=== PATIENT | female | born 1990 | race Caucasian/White ===

== ENCOUNTER 2017-12-16 07:30 | Outpatient (RCR) | payer OTHER, SELFPAY ==
--- NOTE | 2017-10-27 11:10 | PT.OTN ---
Addendum entered and electronically signed by Asiya Floyd, PT 10/27/17 14:20: Transition note: On October 27, 2017 our therapy services consisting of Speech, Occupational, and Physical Therapy transitioned from the [employer] electronic documentation system to a new [employer] electronic documentation system.?? All documentation prior to October 27 can be found under [employer] saved data. From October 27 forward all medical record documentation will be in [email or web address]. Original Note: Physical Therapy Treatment Note PT-OP-A Visit Information Start: 10/27/17 08:14 Freq: Status: Active Protocol: Activity Type Activity Date Activity User E-Sign Co-Sign Detail Recorded Client Recorded Date Recorded By Document 10/27/17 08:16 AMB [email or web address] 10/27/17 08:33 AMB 10/27/17 08:16 Out-Patient Physical Therapy Visit Information [Visit Information] -Visit Type Treatment Note -Visit Start Time 07:40 -Visit Stop Time 08:15 -Total Visit Minutes 35 -Visit Number 2 PT-OP-C Subjective Start: 10/27/17 08:14 Freq: Status: Active Protocol: Activity Type Activity Date Activity User E-Sign Co-Sign Detail Recorded Client Recorded Date Recorded By Document 10/27/17 08:16 AMB [email or web address] 10/27/17 08:33 AMB 10/27/17 08:16 OP-PT Subjective [Patient Comments] -Patient Comments Patient states she had to drive up to the [facility] and the long drive increased her hip pain. When the pain is bad it radiates into the front of the hip and down the medial thigh. PT-OP-Q Treatments Start: 10/27/17 08:14 Freq: Status: Active Protocol: Activity Type Activity Date Activity User E-Sign Co-Sign Detail Recorded Client Recorded Date Recorded By Document 10/27/17 08:16 AMB [email or web address] 10/27/17 08:33 AMB 10/27/17 08:16 Cardio Equipment [Recumbent Bicycle] -Duration (Minutes) 5 -Resistance L4 Gym Equipment [Shuttle Recovery] Double leg squat -Resistance 62 -Shuttle Recovery Platform Stable -Reps/Time 5 min Therapeutic Exercises [Supine Exercises] Hooklying hip ER with theraband -Resistance #3 -Reps/Minutes 2x10 Hip flexor stretch -Side left -Reps/Minutes 30sec x4 Hip flexion SLR -Side left -Reps/Minutes 2x10 Piriformis stretch -Side left -Reps/Minutes 30 sec x4 Bridge -Side bilateral -Reps/Minutes 4 [Prone Exercises] Quadruped hip extension -Side bilateral -Reps/Minutes 4 minutes [Sidelying Exercises] clamshell -Side bilateral -Reps/Minutes 4 minutes PT-OP-T Assessment and Plan Start: 10/27/17 08:14 Freq: Status: Active Protocol: Activity Type Activity Date Activity User E-Sign Co-Sign Detail Recorded Client Recorded Date Recorded By Document 10/27/17 08:16 AMB [email or web address] 10/27/17 08:33 AMB 10/27/17 08:16 Physical Therapy Assessment [Assessment Summary] -Assessment The patient presents with knee valgus positioning and poor endurance in hip abduction and external rotation. We will start slow due to her previous history of knee pain, and follow up on HEP tolerance of SLR and clam exercises. Physical Therapy Plan [Next Visit Focus/Plan] -Next Visit Plan Progress stabilization exercises.
--- NOTE | 2017-11-03 08:26 | PT.OTN ---
Physical Therapy Treatment Note PT-OP-A Visit Information Start: 10/27/17 08:14 Freq: Status: Active Protocol: Activity Type Activity Date Activity User E-Sign Co-Sign Detail Recorded Client Recorded Date Recorded By Document 11/03/17 07:30 AMB [id number] 11/03/17 07:38 AMB 11/03/17 07:30 Out-Patient Physical Therapy Visit Information [Visit Information] -Visit Type Treatment Note -Visit Note POC expires -Visit Start Time 07:30 -Visit Stop Time 08:15 -Total Visit Minutes 45 -Visit Number 3 [Evaluation Information] -Evaluation Date 12/20/17 PT-OP-C Subjective Start: 10/27/17 08:14 Freq: Status: Active Protocol: Activity Type Activity Date Activity User E-Sign Co-Sign Detail Recorded Client Recorded Date Recorded By Document 11/03/17 07:30 AMB [id number] 11/03/17 07:56 AMB 11/03/17 07:30 OP-PT Subjective [Patient Comments] -Patient Comments Pt tried her friend's tilt table which helped for a little bit. Did some yardwork over the weekend which she was careful with but went ok. -Patient Reported Progress Improving OP-PT Pain Assessment [Location] Left Hip -Intensity 3 -Scale Used Numeric (1 - 10 ) PT-OP-Q Treatments Start: 10/27/17 08:14 Freq: Status: Active Protocol: Activity Type Activity Date Activity User E-Sign Co-Sign Detail Recorded Client Recorded Date Recorded By Document 11/03/17 07:30 AMB [id number] 11/03/17 08:17 AMB 11/03/17 07:30 Cardio Equipment [Recumbent Bicycle] -Duration (Minutes) 5 -Resistance L4 Gym Equipment [Shuttle Recovery] Double leg squat -Resistance 62 -Shuttle Recovery Platform Stable -Reps/Time 5 min [Therapeutic Ball] 2 -Exercise Details trunk rotation -Ball Size/Color red ball -Body Position Supine -Reps/Duration 2x15 1 -Exercise Details bridges -Ball Size/Color red ball -Body Position Supine -Reps/Duration 2x12 Therapeutic Exercises [Supine Exercises] 1 -Supine Exercise Name piriformis stretch -Reps/Minutes 2x 30 sec Hip flexion SLR -Side left -Reps/Minutes 2x10 Bridge -Side bilateral -Reps/Minutes 4 [Sidelying Exercises] 1 -Sidelying Exercise Name hip abduction -Reps/Minutes 2x 8 clamshell -Side bilateral -Reps/Minutes 4 minutes Manual Therapy Treatment [Soft Tissue Mobilization] L hip -Body Location L piriformis, QL -Mobilization Type Strumming Sustained Pressure -Intensity/Depth Moderate -Body Position Sidelying [Manual Traction] L LE -Details long axis distraction -Reps/Duration 5 min PT-OP-T Assessment and Plan Start: 10/27/17 08:14 Freq: Status: Active Protocol: Activity Type Activity Date Activity User E-Sign Co-Sign Detail Recorded Client Recorded Date Recorded By Document 11/03/17 07:30 AMB [id number] 11/03/17 08:26 AMB 11/03/17 07:30 Physical Therapy Assessment [Goals] 2 -Impairment Exercise tolerance -Short Term Goal (STG) The patient will be independwent with a stabilization HEP -STG Duration 8 weeks -Superintendent [employer] Goal (LTG) The patient will return to her workout at the gym for 1 hour with pain of 3/10 or less . -LTG Duration 10 weeks 1 -Impairment Positional tolerance -Short Term Goal (STG) The patient will sit at her office for 45 minutes with 3/ 10 pain or less . -STG Duration 8 weeks -Alf Goal (LTG) The patient will stand with good body mechanics for 30 minutes with 3/10 pain or less. -LTG Duration 10 weeks [Assessment Summary] -Assessment The patient had less severe pain today. She tolerated more advanced exercises, but tends to overuse her lumbar musculature rather than her hips. Physical Therapy Plan [Next Visit Focus/Plan] -Next Visit Plan Progress body mechanics training.
--- NOTE | 2017-11-10 09:17 | PT.OTN ---
Physical Therapy Treatment Note PT-OP-A Visit Information Start: 10/27/17 08:14 Freq: Status: Active Protocol: Document 11/10/17 07:30 AMB (Rec: 11/10/17 07:30 AMB [id number]) Out-Patient Physical Therapy Visit Information Visit Information Visit Type Treatment Note Visit Note POC expires 01/05 Visit Start Time 07:30 Visit Stop Time 08:15 Total Visit Minutes 45 Visit Number 4 Evaluation Information Evaluation Date 12/20/17 PT-OP-C Subjective Start: 10/27/17 08:14 Freq: Status: Active Protocol: Document 11/10/17 07:30 AMB (Rec: 11/10/17 07:35 AMB [id number]) OP-PT Subjective Patient Comments Patient Comments Sitting for 2 hours over the weekend increased pain. She has been doing her PT exercises. PT-OP-Q Treatments Start: 10/27/17 08:14 Freq: Status: Active Protocol: Document 11/10/17 07:30 AMB (Rec: 11/10/17 08:07 AMB [id number]) Cardio Equipment Recumbent Bicycle Duration (Minutes) 5 Resistance L5 Gym Equipment Shuttle Balance 1 Details BLUE Reps/Duration 2x10 Comments squats Therapeutic Ball 3 Exercise Details seated on green ball Ball Size/Color seated march and pelvic circles Reps/Duration x 20 ea Therapeutic Exercises Supine Exercises 2 Supine Exercise Name 90-90 tap downs Reps/Minutes 2 x 8 Prone Exercises 2 Prone Exercise Name modifed plank Comments forearms Quadruped hip extension Side bilateral Reps/Minutes 4 minutes Sidelying Exercises 1 Sidelying Exercise Name hip abduction Reps/Minutes 2x 10 clamshell Side bilateral Reps/Minutes 4 minutes Manual Therapy Treatment Soft Tissue Mobilization L hip Body Location L piriformis, QL Mobilization Type Strumming Sustained Pressure Intensity/Depth Moderate Body Position Sidelying PT-OP-T Assessment and Plan Start: 10/27/17 08:14 Freq: Status: Active Protocol: Document 11/10/17 07:30 AMB (Rec: 11/10/17 09:16 AMB [id number]) Physical Therapy Assessment Assessment Summary Assessment More low back than hip pain today. Tight QL on the L. Physical Therapy Plan Next Visit Focus/Plan Next Visit Plan Progress core stabilization, seated and sleeping postures
--- NOTE | 2017-11-17 09:17 | PT.OTN ---
Physical Therapy Treatment Note PT-OP-A Visit Information Start: 10/27/17 08:14 Freq: Status: Active Protocol: Document 11/17/17 07:30 AMB (Rec: 11/17/17 07:42 AMB [id number]) Out-Patient Physical Therapy Visit Information Visit Information Visit Type Treatment Note Visit Note POC expires 01/05 Visit Start Time 07:30 Visit Stop Time 08:15 Total Visit Minutes 45 Visit Number 5 Evaluation Information Evaluation Date 12/20/17 PT-OP-C Subjective Start: 10/27/17 08:14 Freq: Status: Active Protocol: Document 11/17/17 07:30 AMB (Rec: 11/17/17 07:43 AMB [id number]) OP-PT Subjective Patient Comments Patient Comments Pt reports increased posterior low back (L) pain after driving extensively yesterday. PT-OP-Q Treatments Start: 10/27/17 08:14 Freq: Status: Active Protocol: Document 11/17/17 07:30 AMB (Rec: 11/17/17 09:16 AMB [email or web address]) Gym Equipment Shuttle Recovery Double leg squat Resistance 62 Shuttle Recovery Platform Stable Reps/Time 5 min Therapeutic Ball 3 Exercise Details seated on green ball Ball Size/Color seated march and pelvic circles Reps/Duration x 20 ea Therapeutic Exercises Supine Exercises 3 Supine Exercise Name 90-90 isometric hold Reps/Minutes 5 seconds x 5 Bridge Side bilateral Reps/Minutes 4 Prone Exercises Quadruped hip extension Side bilateral Reps/Minutes 4 minutes Sidelying Exercises 1 Sidelying Exercise Name hip abduction Reps/Minutes 2x 10 Manual Therapy Treatment Soft Tissue Mobilization L hip Body Location L piriformis, QL Mobilization Type Strumming Sustained Pressure Intensity/Depth Moderate Body Position Sidelying Manual Traction L LE Details long axis distraction Reps/Duration 5 min PT-OP-R Modalities Start: 11/17/17 08:14 Freq: Status: Active Protocol: Document 11/17/17 07:30 AMB (Rec: 11/17/17 08:15 AMB [id number]) Electric Stimulation Electric Stimulation Interferential Current (IFC) Body Location L low back Duration (Minutes) 15 Target/Sweep Sweep Patient Position Hooklying PT-OP-T Assessment and Plan Start: 10/27/17 08:14 Freq: Status: Active Protocol: Document 11/17/17 07:30 AMB (Rec: 11/17/17 09:16 AMB [email or web address]) Physical Therapy Assessment Goals 2 Impairment Exercise tolerance Short Term Goal (STG) The patient will be independwent with a stabilization HEP STG Duration 8 weeks Roll On Man Goal (LTG) The patient will return to her workout at the gym for 1 hour with pain of 3/10 or less. LTG Duration 10 weeks 1 Impairment Positional tolerance Short Term Goal (STG) The patient will sit at her office for 45 minutes with 3/ 10 pain or less. STG Duration 8 weeks Roll On Man Goal (LTG) The patient will stand with good body mechanics for 30 minutes with 3/10 pain or less . LTG Duration 10 weeks Assessment Summary Assessment Pt with flare up of sx due to increased driving time. 8 early in morning, 6/10 after leaving PT in left low back. Physical Therapy Plan Next Visit Focus/Plan Next Visit Plan Encourage pt in self care when she has a pain flare up. Please Sign and Return: I have reviewed this Plan of Care and certify that the skilled therapy services above are required to meet the patient???s needs. Physician Signature Date Printed Name and Credentials Clinical Instructor Signature Printed Name and Credentials
--- NOTE | 2017-11-26 12:56 | PT.OTN ---
Physical Therapy Treatment Note PT-OP-A Visit Information Start: 10/27/17 08:14 Freq: Status: Active Protocol: Document 11/26/17 07:30 AMB (Rec: 11/26/17 07:30 AMB [id number]) Out-Patient Physical Therapy Visit Information Visit Information Visit Type Treatment Note Visit Note POC expires 01/05 Visit Start Time 07:30 Visit Stop Time 08:15 Total Visit Minutes 45 Visit Number 6 Evaluation Information Evaluation Date 12/20/17 PT-OP-C Subjective Start: 10/27/17 08:14 Freq: Status: Active Protocol: Document 11/26/17 07:30 AMB (Rec: 11/26/17 12:55 AMB [email or web address]) OP-PT Subjective Patient Comments Patient Comments The patient states she is doing ok today, she was not doing as well earlier in the week, sitting for 7 hours for work really irritated her left low back. She does feel that overall she is improving with PT. PT-OP-Q Treatments Start: 10/27/17 08:14 Freq: Status: Active Protocol: Document 11/26/17 07:30 AMB (Rec: 11/26/17 12:55 AMB [email or web address]) Cardio Equipment Recumbent Bicycle Duration (Minutes) 5 Resistance L5 Therapeutic Exercises Supine Exercises 3 Supine Exercise Name 90-90 isometric hold Reps/Minutes 5 seconds x 5 2 Supine Exercise Name 90-90 tap downs Reps/Minutes 2 x 8 Bridge Side bilateral Reps/Minutes 4 Prone Exercises Quadruped hip extension Side bilateral Reps/Minutes 4 minutes Sidelying Exercises 1 Sidelying Exercise Name hip abduction Reps/Minutes 2x 10 clamshell Side bilateral Reps/Minutes 4 minutes Therapeutic Activity Therapeutic Activity 1 Name Lifting 10# Comments squatting from knee to waist height PT-OP-R Modalities Start: 11/17/17 08:14 Freq: Status: Active Protocol: Document 11/17/17 07:30 AMB (Rec: 11/17/17 08:15 AMB [id number]) Electric Stimulation Electric Stimulation Interferential Current (IFC) Body Location L low back Duration (Minutes) 15 Target/Sweep Sweep Patient Position Hooklying PT-OP-T Assessment and Plan Start: 10/27/17 08:14 Freq: Status: Active Protocol: Document 11/26/17 07:30 AMB (Rec: 11/26/17 12:55 AMB [email or web address]) Physical Therapy Assessment Assessment Summary Assessment Pt reports she has been back to the gym doing light weights and that has been going well. Sitting continues to be the biggest challenge. Physical Therapy Plan Next Visit Focus/Plan Next Note Type Treatment Note Next Visit Plan Problem solve sitting/ lifting mechanics. Please Sign and Return: I have reviewed this Plan of Care and certify that the skilled therapy services above are required to meet the patient???s needs. Physician Signature Date Printed Name and Credentials Clinical Instructor Signature Printed Name and Credentials
--- NOTE | 2017-12-03 06:27 | PT.OTN ---
Physical Therapy Treatment Note PT-OP-A Visit Information Start: 10/27/17 08:14 Freq: Status: Active Protocol: Document 12/02/17 07:30 AMB (Rec: 12/02/17 07:42 AMB [id number]) Out-Patient Physical Therapy Visit Information Visit Information Visit Type Treatment Note Visit Note POC expires 01/05 Visit Start Time 07:30 Visit Stop Time 08:15 Total Visit Minutes 45 Visit Number 7 Evaluation Information Evaluation Date 12/20/17 PT-OP-C Subjective Start: 10/27/17 08:14 Freq: Status: Active Protocol: Document 12/02/17 07:30 AMB (Rec: 12/02/17 08:11 AMB [id number]) OP-PT Subjective Patient Comments Patient Comments Patient states later this week , she will be driving more which continues to be painful. PT-OP-Q Treatments Start: 10/27/17 08:14 Freq: Status: Active Protocol: Document 12/02/17 07:30 AMB (Rec: 12/03/17 06:26 AMB [email or web address]) Cardio Equipment Recumbent Bicycle Duration (Minutes) 5 Resistance L5 Gym Equipment Shuttle Recovery Double leg squat Resistance 62 Shuttle Recovery Platform Stable Reps/Time 5 min Therapeutic Ball 2 Exercise Details trunk rotation Ball Size/Color red ball Body Position Supine Reps/Duration 2x15 1 Exercise Details bridges Ball Size/Color red ball Body Position Supine Reps/Duration 2x12 Therapeutic Exercises Supine Exercises 2 Supine Exercise Name 90-90 tap downs Reps/Minutes 2 x 8 Prone Exercises Quadruped hip extension Side bilateral Reps/Minutes 4 minutes Self-Care/Home Management Treatment Education Patient Education Pain Management Other Education SI belt fitting, and role with seated pain PT-OP-R Modalities Start: 11/17/17 08:14 Freq: Status: Active Protocol: Document 11/17/17 07:30 AMB (Rec: 11/17/17 08:15 AMB [id number]) Electric Stimulation Electric Stimulation Interferential Current (IFC) Body Location L low back Duration (Minutes) 15 Target/Sweep Sweep Patient Position Hooklying PT-OP-T Assessment and Plan Start: 10/27/17 08:14 Freq: Status: Active Protocol: Document 12/02/17 07:30 AMB (Rec: 12/03/17 06:26 AMB [email or web address]) Physical Therapy Assessment Assessment Summary Assessment Pt felt better support with SI belt in SI joint, but compression over hips was somewat uncomfortable Physical Therapy Plan Next Visit Focus/Plan Next Note Type Treatment Note Next Visit Plan Follow up on SI belt, seated pain. Please Sign and Return: I have reviewed this Plan of Care and certify that the skilled therapy services above are required to meet the patient?s needs. Physician Signature Date Printed Name and Credentials Clinical Instructor Signature Printed Name and Credentials
--- NOTE | 2017-12-09 13:59 | PT.OTN ---
Physical Therapy Treatment Note PT-OP-A Visit Information Start: 10/27/17 08:14 Freq: Status: Active Protocol: Document 12/09/17 07:30 AMB (Rec: 12/09/17 07:33 AMB [id number]) Out-Patient Physical Therapy Visit Information Visit Information Visit Type Treatment Note Visit Note POC expires 01/05 Visit Start Time 07:30 Visit Stop Time 08:15 Total Visit Minutes 45 Visit Number 8 PT-OP-C Subjective Start: 10/27/17 08:14 Freq: Status: Active Protocol: Document 12/09/17 07:30 AMB (Rec: 12/09/17 07:38 AMB [id number]) OP-PT Subjective Patient Comments Patient Comments The patient reports last week was a lot of driving, so fairly painful. PT-OP-Q Treatments Start: 10/27/17 08:14 Freq: Status: Active Protocol: Document 12/09/17 07:30 AMB (Rec: 12/09/17 13:58 AMB [id number]) Therapeutic Exercises Prone Exercises 2 Prone Exercise Name modifed plank Comments forearms Quadruped hip extension Side bilateral Reps/Minutes 4 minutes Sidelying Exercises 1 Sidelying Exercise Name hip abduction Reps/Minutes 2x 10 clamshell Side bilateral Reps/Minutes 4 minutes Sitting Exercises 2 Sitting Exercise Name shoulder ER t band Resistance 3 Reps/Minutes 10 1 Sitting Exercise Name rows theraband Resistance 3 Comments 10 Manual Therapy Treatment Manual Traction L LE Details long axis distraction Reps/Duration 5 min PT-OP-R Modalities Start: 11/17/17 08:14 Freq: Status: Active Protocol: Document 11/17/17 07:30 AMB (Rec: 11/17/17 08:15 AMB [id number]) Electric Stimulation Electric Stimulation Interferential Current (IFC) Body Location L low back Duration (Minutes) 15 Target/Sweep Sweep Patient Position Hooklying PT-OP-T Assessment and Plan Start: 10/27/17 08:14 Freq: Status: Active Protocol: Document 12/09/17 07:30 AMB (Rec: 12/09/17 13:58 AMB [id number]) Physical Therapy Assessment Goals 2 Impairment Exercise tolerance Short Term Goal (STG) The patient will be independwent with a stabilization HEP STG Duration 8 weeks Mcfp Goal (LTG) The patient will return to her workout at the gym for 1 hour with pain of 3/10 or less. LTG Duration 10 weeks 1 Impairment Positional tolerance Short Term Goal (STG) The patient will sit at her office for 45 minutes with 3/ 10 pain or less. STG Duration 8 weeks Volunteer Fire Fighter Goal (LTG) The patient will stand with good body mechanics for 30 minutes with 3/10 pain or less . LTG Duration 10 weeks Assessment Summary Assessment Vended SI belt, possible d/c next visit as pt is feeling somewhat better. Physical Therapy Plan Next Visit Focus/Plan Next Note Type Discharge Summary Next Visit Plan Pt is possibly being discharged. Please Sign and Return: I have reviewed this Plan of Care and certify that the skilled therapy services above are required to meet the patient?s needs. Physician Signature Date Printed Name and Credentials Clinical Instructor Signature Printed Name and Credentials
--- NOTE | 2017-12-16 09:39 | PT.OTN ---
Physical Therapy Treatment Note PT-OP-A Visit Information Start: 10/27/17 08:14 Freq: Status: Active Protocol: Document 12/16/17 07:30 AMB (Rec: 12/16/17 07:43 AMB [id number]) Out-Patient Physical Therapy Visit Information Visit Information Visit Start Time 07:40 Visit Stop Time 08:15 Total Visit Minutes 35 Visit Number 9 Evaluation Information Evaluation Date 12/20/17 PT-OP-C Subjective Start: 10/27/17 08:14 Freq: Status: Active Protocol: Document 12/16/17 07:30 AMB (Rec: 12/16/17 07:43 AMB [id number]) OP-PT Subjective Patient Comments Patient Comments Pt reports a painful day yesterday driving down to [facility] and back. PT-OP-Q Treatments Start: 10/27/17 08:14 Freq: Status: Active Protocol: Document 12/16/17 07:30 AMB (Rec: 12/16/17 09:38 AMB [email or web address]) Cardio Equipment Recumbent Bicycle Duration (Minutes) 5 Resistance L5 Gym Equipment Therapeutic Ball 2 Exercise Details trunk rotation Ball Size/Color red ball Body Position Supine Reps/Duration 2x15 Manual Therapy Treatment Soft Tissue Mobilization L hip Body Location L piriformis, QL Mobilization Type Strumming Sustained Pressure Intensity/Depth Moderate Body Position Sidelying Manual Traction L LE Details long axis distraction Reps/Duration 5 min PT-OP-R Modalities Start: 11/17/17 08:14 Freq: Status: Active Protocol: Document 11/17/17 07:30 AMB (Rec: 11/17/17 08:15 AMB [id number]) Electric Stimulation Electric Stimulation Interferential Current (IFC) Body Location L low back Duration (Minutes) 15 Target/Sweep Sweep Patient Position Hooklying PT-OP-T Assessment and Plan Start: 10/27/17 08:14 Freq: Status: Active Protocol: Document 12/16/17 07:30 AMB (Rec: 12/16/17 09:38 AMB [email or web address]) Physical Therapy Assessment Goals 2 Impairment Exercise tolerance Short Term Goal (STG) The patient will be independwent with a stabilization HEP. MET STG Duration 8 weeks Conveyor Belt Operator Goal (LTG) The patient will return to her workout at the gym for 1 hour with pain of 3/10 or less. MET LTG Duration 10 weeks 1 Impairment Positional tolerance Short Term Goal (STG) The patient will sit at her office for 45 minutes with 3/ 10 pain or less. PARTIALLY MET- pt can sit at her desk for 1 hour, but it increases her pain STG Duration 8 weeks [employer] Goal (LTG) The patient will stand with good body mechanics for 30 minutes with 3/10 pain or less . MET LTG Duration 10 weeks Assessment Summary Assessment The patient reports pain at best is 2/10, after extended sitting/driving it can get up to a 7/10. She has been instructed in self care activities to help manage this pain, but it does continue. Physical Therapy Plan Discharge Physical Therapy Discharge Reasons Patient Request Discharge Comments Patient is feeling that she is ready to be independent with her HEP. Sitting remains the most painful activity for her.
--- NOTE | 2017-12-16 09:40 | PT.OPDS ---
Provider Visit Care Team Role Provider Type Jenny Banks MD Attending Provider Non-Staff Family Provider Primary Care Provider Specialty: Family Practice Address: [address] [place] [address], [place], [address] Email: Visit Number 9 Discharge Summary PT-OP-C Subjective Start: 10/27/17 08:14 Freq: Status: Active Protocol: Document 12/16/17 07:30 AMB (Rec: 12/16/17 07:43 AMB [id number]) OP-PT Subjective Patient Comments Patient Comments Pt reports a painful day yesterday driving down to [place] [facility] [place], [place] and back. PT-OP-T Assessment and Plan Start: 10/27/17 08:14 Freq: Status: Active Protocol: Document 12/16/17 07:30 AMB (Rec: 12/16/17 09:38 AMB [id number]) Physical Therapy Assessment Goals 2 Impairment Exercise tolerance Short Term Goal (STG) The patient will be independwent with a stabilization HEP. MET STG Duration 8 weeks Correction Goal (LTG) The patient will return to her workout at the gym for 1 hour with pain of 3/10 or less. MET LTG Duration 10 weeks 1 Impairment Positional tolerance Short Term Goal (STG) The patient will sit at her office for 45 minutes with 3/ 10 pain or less. PARTIALLY MET- pt can sit at her desk for 1 hour, but it increases her pain STG Duration 8 weeks Worship Pastor Goal (LTG) The patient will stand with good body mechanics for 30 minutes with 3/10 pain or less . MET LTG Duration 10 weeks Assessment Summary Assessment The patient reports pain at best is 2/10, after extended sitting/driving it can get up to a 7/10. She has been instructed in self care activities to help manage this pain, but it does continue. Physical Therapy Plan Discharge Physical Therapy Discharge Reasons Patient Request Discharge Comments Patient is feeling that she is ready to be independent with her HEP. Sitting remains the most painful activity for her.
== END 2018-04-08 09:37 ==
LOC: PHYS 07:30
PROVIDERS: Family Provider Family Medicine; PCP Family Medicine; Visit Provider Family Medicine
DX: M25.552 Pain in left hip (principal)
CPT/HCPCS: 97014; 97110; 97140; 97530; 97535; G0283

== ENCOUNTER → 2021-03-14 13:15 | Outpatient (CLI) | payer OTHER, SELFPAY | PROVIDERS: Family Provider Family Medicine; PCP Family Medicine; Referring Provider Family Medicine; Visit Provider Family Medicine | DX: R20.2 Paresthesia of skin (principal) | CPT/HCPCS: 95886; 95910 ==